=== PATIENT | female | born 1950 | race Caucasian/White ===

== ENCOUNTER 2024-11-03 13:21 | Emergency (ER) | payer MEDICARE ==
[~2024-11-03] VITALS: Ht 170.2 cm; Wt 61.9 kg
[2024-11-03 13:26] VITALS: TEMP 96.8
[2024-11-03 17:36] VITALS: BP 152/58; PULSE 65; RESP 15; O2SAT 97
== END 2024-11-03 17:39 | disposition home or self-care (01) ==
LOC: ER 13:22
DX: S82.002A Unspecified fracture of left patella, initial encounter for closed fracture (principal); Z88.5 Allergy status to narcotic agent; W01.0XXA Fall on same level from slipping, tripping and stumbling without subsequent striking against object, initial encounter; Y93.89 Activity, other specified; Y92.89 Other specified places as the place of occurrence of the external cause; Y99.8 Other external cause status
CPT/HCPCS: 29505; 73130; 73564; 99284